=== PATIENT | male | born 1960 | race Caucasian/White ===

== ENCOUNTER 2021-11-09 11:34 | Inpatient (IN) | payer BC ==
[~2021-11-09 11:34] MED LIST: Iopamidol-370 76% 500 ML 1 ML ONE
[2021-11-09 12:05] LABS: #Eosinphils 0.3 thou/uL (0.0-0.7); #Lymphocytes 1.3 thou/uL (1.20-3.40); #Monocytes 1.4 thou/uL (0.11-0.59); #Neutrophils 11.2 thou/uL (1.40-6.50); %Basophils 0.1 % (0.0-1.0); %Eosinophils 2.1 % (0.0-10.0); %Lymphocytes 9.2 % (21.0-51.0); %Monocytes 9.9 % (0.0-10.0); %Neutrophils 78.7 % (42.0-75.0); Hemoglobin 13.9 g/dL (14.0-18.0); Mean Corpuscular HGB CONC 32.5 g/dL (32.0-36.0); Mean Corpuscular Hemoglobin 29.9 pg (27.0-31.0); Mean Platelet Volume 6.3 fL (7.4-10.4); Platelet Count 439 thou/uL (130-400); RBC Distribution Width 11.1 % (11.5-14.5); Red Blood Cell (RBC) Count 4.64 mill/uL (4.70-6.10); White Blood Cell (WBC) Count 14.2 thou/uL (4.8-10.8)
[2021-11-09 12:23] LABS: ALT (SGPT) 74 U/L (8-55); AST (SGOT) 76 U/L (5-34); Albumin 3.6 g/dL (3.5-5.0); Alkaline Phosphatase 106 U/L (40-110); Anion Gap 13 mmol/L (10-20); BUN (Urea Nitrogen) 13 mg/dL (8.4-25.7); Bilirubin, Total 1.5 mg/dL (0.2-1.2); Calc. Creatinine Clearance 0 mL/min (70-130); Calcium 9.5 mg/dL (7.8-10.44); Carbon Dioxide 29 mmol/L (22-29); Chloride 93 mmol/L (98-107); Globulin 3.5 g/dL (2.4-3.5); Glucose 113 mg/dL (70-105); Potassium 5.4 mmol/L (3.5-5.1); Protein, Total 7.1 g/dL (6.0-8.3); Sodium 130 mmol/L (136-145)
[2021-11-09] MEDS ORDERED: Cefepime 2 GM VIAL ONE (14:27)
[2021-11-09] MEDS ORDERED: VANCOMYCIN 2 GRAM/500 ML BAG 2 GM in Premix Bag 1 BAG IVPB SCH (15:15)
[2021-11-09 16:00] LABS: SARS-CoV-2 NAA Rapid Test Not Detected (NotDetected)
[2021-11-09] MEDS ORDERED: Senokot S 8.6-50 MG TAB PO PRN (16:42)
[2021-11-09] MEDS ORDERED: Ondansetron PF 4 MG/2 ML Vial IVP PRN ×2 (16:42→16:45)
[2021-11-09] MEDS ORDERED: Ondansetron ODT 4 MG TAB PO PRN (16:45)
[2021-11-09] MEDS ORDERED: Acetaminophen 325 MG TAB PO PRN (16:45)
[2021-11-09 17:24] VITALS: BMI 32.3
[2021-11-09] MEDS: Lactated Ringer's 1,000 ML IV SCH (17:47)
[2021-11-09] MEDS ORDERED: Albuterol 200 PUFF (6.7GM INHALER) INH PRN (17:54)
[2021-11-09] MEDS ORDERED: PROMETHAZINE PO PRN (18:17)
[2021-11-09] MEDS ORDERED: DEXTROMETHORPHAN PO PRN (18:17)
[2021-11-09] MEDS: Acetaminophen 325 MG TAB PO SCH (20:22)
[2021-11-09] MEDS: Benzonatate 100 MG CAP PO SCH (20:23)
[2021-11-09] MEDS: Acetaminophen/Codeine 30-300mg Tablet PO PRN (21:14)
[2021-11-09] MEDS: metroNIDAZOLE 500 MG in Premix Bag 1 BAG IVPB SCH (21:14)
[2021-11-10 00:31] LABS: Anion Gap 11 mmol/L (10-20); BUN (Urea Nitrogen) 11 mg/dL (8.4-25.7); Calc. Creatinine Clearance 137 mL/min (70-130); Calcium 8.9 mg/dL (7.8-10.44); Carbon Dioxide 28 mmol/L (22-29); Chloride 97 mmol/L (98-107); Glucose 107 mg/dL (70-105); Potassium 4.2 mmol/L (3.5-5.1); Sodium 132 mmol/L (136-145)
[2021-11-10] MEDS ORDERED: Ibuprofen 800 MG TAB PO PRN (01:31)
[2021-11-10] MEDS: Lactated Ringer's 1,000 ML IV SCH ×3 (03:17→20:08)
[2021-11-10] MEDS: VANCOMYCIN 1.75 GM/500 ML BAG 1.75 GM in Premix Bag 1 BAG IVPB SCH ×2 (03:44→16:45)
[2021-11-10] MEDS: metroNIDAZOLE 500 MG in Premix Bag 1 BAG IVPB SCH ×3 (03:45→21:39)
[2021-11-10] MEDS: Acetaminophen 325 MG TAB PO SCH ×3 (03:59→20:17)
[2021-11-10] MEDS: Acetaminophen/Codeine 30-300mg Tablet PO PRN ×2 (05:27→23:36)
[2021-11-10 07:00] LABS: #Eosinphils 0.4 thou/uL (0.0-0.7); #Neutrophils 7.8 thou/uL (1.40-6.50); %Basophils 0.3 % (0.0-1.0); %Lymphocytes 9.4 % (21.0-51.0); %Monocytes 9.7 % (0.0-10.0); %Neutrophils 76.7 % (42.0-75.0); Hemoglobin 12.8 g/dL (14.0-18.0); Mean Corpuscular HGB CONC 33.4 g/dL (32.0-36.0); Mean Corpuscular Volume 92.8 fL (78.0-98.0); Mean Platelet Volume 6.9 fL (7.4-10.4); Platelet Count 332 thou/uL (130-400); RBC Distribution Width 11.1 % (11.5-14.5); Red Blood Cell (RBC) Count 4.13 mill/uL (4.70-6.10); White Blood Cell (WBC) Count 10.2 thou/uL (4.8-10.8)
[2021-11-10 07:23] LABS: Anion Gap 11 mmol/L (10-20); BUN (Urea Nitrogen) 10 mg/dL (8.4-25.7); Calc. Creatinine Clearance 152 mL/min (70-130); Calcium 9.1 mg/dL (7.8-10.44); Carbon Dioxide 28 mmol/L (22-29); Cardiac Risk 7.3 (Less than 4.5); Chloride 100 mmol/L (98-107); Cholesterol 139 mg/dl (< 200 Desired); Glucose 117 mg/dL (70-105); HDL Cholesterol 19 mg/dL (>60 Neg Risk); LDL Cholesterol, Calculated 101 mg/dL; Potassium 3.9 mmol/L (3.5-5.1); Sodium 135 mmol/L (136-145); Triglycerides 96 mg/dL (Less than 150)
[2021-11-10] MEDS ORDERED: Enoxaparin Sodium 40 MG/0.4 ML SYRINGE SC SCH (09:00)
[2021-11-10 09:12] LABS: INR-International Normal Ratio 1.2; Prothrombin Time 14.8 sec (12.0-14.7)
[2021-11-10 09:13] LABS: PTT 39.9 sec (22.9-36.1)
[2021-11-10] MEDS: Benzonatate 100 MG CAP PO SCH ×3 (09:29→20:07)
[2021-11-10] MEDS: Ketorolac Tromethamine 30 MG/ML VIAL IVP PRN (16:30)
[2021-11-10] MEDS: cefTRIAXone\\ROCEPHIN 1 GM in Sodium Chloride 0.9% 100 ML IVPB SCH (20:08)
[2021-11-11 03:48] LABS: Vancomycin, Trough 14.9 ug/mL
[2021-11-11] MEDS: VANCOMYCIN 1.75 GM/500 ML BAG 1.75 GM in Premix Bag 1 BAG IVPB SCH (04:37)
[2021-11-11] MEDS: Ketorolac Tromethamine 30 MG/ML VIAL IVP PRN (04:41)
[2021-11-11] MEDS: Acetaminophen 500 MG TAB PO SCH ×3 (05:07→20:43)
[2021-11-11] MEDS: metroNIDAZOLE 500 MG in Premix Bag 1 BAG IVPB SCH ×3 (08:14→20:43)
[2021-11-11] MEDS: Lactated Ringer's 1,000 ML IV SCH ×2 (08:15→11:53)
[2021-11-11] MEDS: Benzonatate 100 MG CAP PO SCH ×3 (08:15→19:53)
[2021-11-11 08:54] LABS: #Eosinphils 0.3 thou/uL (0.0-0.7); #Monocytes 0.9 thou/uL (0.11-0.59); #Neutrophils 7.9 thou/uL (1.40-6.50); %Basophils 0.1 % (0.0-1.0); %Eosinophils 2.7 % (0.0-10.0); %Lymphocytes 10.2 % (21.0-51.0); %Monocytes 9.2 % (0.0-10.0); %Neutrophils 77.9 % (42.0-75.0); Hemoglobin 12.3 g/dL (14.0-18.0); Mean Corpuscular HGB CONC 33.4 g/dL (32.0-36.0); Mean Platelet Volume 6.6 fL (7.4-10.4); Platelet Count 332 thou/uL (130-400); Red Blood Cell (RBC) Count 3.95 mill/uL (4.70-6.10); White Blood Cell (WBC) Count 10.2 thou/uL (4.8-10.8)
[2021-11-11 09:15] LABS: ALT (SGPT) 49 U/L (8-55); AST (SGOT) 32 U/L (5-34); Albumin 2.9 g/dL (3.5-5.0); Alkaline Phosphatase 81 U/L (40-110); Anion Gap 12 mmol/L (10-20); BUN (Urea Nitrogen) 12 mg/dL (8.4-25.7); Bilirubin, Total 0.7 mg/dL (0.2-1.2); Calc. Creatinine Clearance 152 mL/min (70-130); Calcium 8.6 mg/dL (7.8-10.44); Carbon Dioxide 24 mmol/L (22-29); Chloride 104 mmol/L (98-107); Globulin 3.4 g/dL (2.4-3.5); Glucose 101 mg/dL (70-105); Potassium 4.1 mmol/L (3.5-5.1); Protein, Total 6.3 g/dL (6.0-8.3); Sodium 136 mmol/L (136-145)
[2021-11-11] MEDS ORDERED: Dexamethasone 4 mg/ml Vial ONE (10:34)
[2021-11-11] MEDS ORDERED: Bupivacaine PF 0.5% 30 ML VIAL ONE (10:34)
[2021-11-11] MEDS ORDERED: EPINEPHrine 1 MG/ML AMP ONE (10:34)
[2021-11-11] MEDS ORDERED: fentaNYL Citrate/PF 100 MCG/2 ML SYRINGE ONE (10:44)
[2021-11-11] MEDS ORDERED: Ondansetron PF 4 MG/2 ML Vial ONE (11:34)
[2021-11-11] MEDS ORDERED: Ketorolac Tromethamine 30 MG/ML VIAL ONE (11:34)
[2021-11-11] MEDS ORDERED: Rocuronium Bromide 10 MG/ML (10ML VIAL) ONE (11:34)
[2021-11-11] MEDS ORDERED: Lidocaine 1% PF 5 ML VIAL ONE (11:34)
[2021-11-11] MEDS ORDERED: Dexamethasone 20 MG/5 ML VIAL ONE (11:34)
[2021-11-11] MEDS ORDERED: PROPOFOL 200 MG/20 ML VIAL ONE (11:34)
[2021-11-11] MEDS ORDERED: Glycopyrrolate 0.2 MG/ML 5 ML SYRINGE ONE (11:34)
[2021-11-11 12:48] LABS: Glucose 66 mg/dL (70-105); Protein, Total 4.9 g/dL (6.0-8.3)
[2021-11-11] MEDS ORDERED: Ondansetron HCl/PF 4 MG/2 ML Vial IVP PRN (13:03)
[2021-11-11] MEDS ORDERED: Promethazine HCl 25 MG/ML VIAL IM PRN ×2 (13:03→13:04)
[2021-11-11] MEDS ORDERED: Promethazine HCl 25 MG/ML VIAL IVPB PRN (13:03)
[2021-11-11] MEDS ORDERED: diphenhydrAMINE 25 MG CAP PO PRN (13:04)
[2021-11-11] MEDS ORDERED: Fentanyl 100 MCG/2 ML VIAL ONE (13:04)
[2021-11-11] MEDS ORDERED: Naloxone HCl 0.4 mg/ml Vial IV PRN (13:04)
[2021-11-11] MEDS ORDERED: Ondansetron PF 4 MG/2 ML Vial IVP PRN (13:04)
[2021-11-11] MEDS ORDERED: diphenhydrAMINE 50 MG/ML VIAL IVP PRN (13:04)
[2021-11-11] MEDS ORDERED: Zolpidem Tartrate 5 MG TAB PO PRN (13:04)
[2021-11-11] MEDS ORDERED: diphenhydrAMINE 50 MG/ML VIAL IM PRN (13:04)
[2021-11-11] MEDS ORDERED: fentaNYL Citrate/PF 2,000 MCG in Sodium Chloride 0.9% 60 ML IV PRN (13:04)
[2021-11-11] MEDS ORDERED: Phenylephrine 40 MG in Sodium Chloride 0.9% 250 ML 250 ML IVPB PRN (13:12)
[2021-11-11] MEDS ORDERED: hydrALAZINE 20 MG/ML VIAL SLOW IVP PRN (13:12)
[2021-11-11] MEDS ORDERED: Communication Order-Pharmacy FS SCH (13:15)
[2021-11-11] MEDS ORDERED: Lactated Ringer's 1,000 ML IV SCH (16:18)
[2021-11-11] MEDS: cefTRIAXone\\ROCEPHIN 1 GM in Sodium Chloride 0.9% 100 ML IVPB SCH (19:53)
[2021-11-12 03:57] LABS: #Lymphocytes 0.4 thou/uL (1.20-3.40); %Eosinophils 0.3 % (0.0-10.0); %Lymphocytes 2.5 % (21.0-51.0); %Monocytes 5.8 % (0.0-10.0); %Neutrophils 91.5 % (42.0-75.0); Hemoglobin 11.8 g/dL (14.0-18.0); Mean Corpuscular HGB CONC 32.5 g/dL (32.0-36.0); Mean Corpuscular Hemoglobin 30.6 pg (27.0-31.0); Mean Corpuscular Volume 94.2 fL (78.0-98.0); Mean Platelet Volume 6.9 fL (7.4-10.4); Platelet Count 348 thou/uL (130-400); RBC Distribution Width 11.1 % (11.5-14.5); Red Blood Cell (RBC) Count 3.85 mill/uL (4.70-6.10); White Blood Cell (WBC) Count 17.5 thou/uL (4.8-10.8)
[2021-11-12 04:25] LABS: Anion Gap 12 mmol/L (10-20); BUN (Urea Nitrogen) 10 mg/dL (8.4-25.7); Calc. Creatinine Clearance 161 mL/min (70-130); Calcium 8.6 mg/dL (7.8-10.44); Carbon Dioxide 24 mmol/L (22-29); Chloride 101 mmol/L (98-107); Glucose 166 mg/dL (70-105); Potassium 4.2 mmol/L (3.5-5.1); Sodium 133 mmol/L (136-145)
[2021-11-12] MEDS: Acetaminophen 500 MG TAB PO SCH ×3 (05:04→21:21)
[2021-11-12] MEDS: metroNIDAZOLE 500 MG in Premix Bag 1 BAG IVPB SCH ×3 (05:05→21:21)
[2021-11-12] MEDS: Tamsulosin HCl 0.4 MG CAP PO SCH (07:21)
[2021-11-12] MEDS: Benzonatate 100 MG CAP PO SCH ×3 (07:21→20:13)
[2021-11-12] MEDS ORDERED: chlorproMAZINE HCl 25 MG TAB PO PRN (08:36)
[2021-11-12] MEDS ORDERED: diphenhydrAMINE 25 MG CAP PO PRN (08:41)
[2021-11-12] MEDS ORDERED: Melatonin 3 MG TAB PO PRN (08:41)
[2021-11-12] MEDS ORDERED: Enoxaparin Sodium 40 MG/0.4 ML SYRINGE SC SCH (10:00)
[2021-11-12] MEDS: cefTRIAXone\\ROCEPHIN 1 GM in Sodium Chloride 0.9% 100 ML IVPB SCH (20:13)
[2021-11-13] MEDS: Acetaminophen 500 MG TAB PO SCH ×3 (05:48→21:57)
[2021-11-13] MEDS: metroNIDAZOLE 500 MG in Premix Bag 1 BAG IVPB SCH ×3 (05:48→21:57)
[2021-11-13 06:03] LABS: #Eosinphils 0.1 thou/uL (0.0-0.7); #Lymphocytes 1.4 thou/uL (1.20-3.40); #Monocytes 0.9 thou/uL (0.11-0.59); #Neutrophils 11.8 thou/uL (1.40-6.50); %Basophils 0.1 % (0.0-1.0); %Eosinophils 0.4 % (0.0-10.0); %Lymphocytes 9.9 % (21.0-51.0); %Monocytes 6.4 % (0.0-10.0); %Neutrophils 83.1 % (42.0-75.0); Hemoglobin 11.9 g/dL (14.0-18.0); Mean Corpuscular HGB CONC 32.4 g/dL (32.0-36.0); Mean Corpuscular Hemoglobin 30.6 pg (27.0-31.0); Mean Corpuscular Volume 94.6 fL (78.0-98.0); Platelet Count 392 thou/uL (130-400); RBC Distribution Width 11.3 % (11.5-14.5); Red Blood Cell (RBC) Count 3.89 mill/uL (4.70-6.10); White Blood Cell (WBC) Count 14.1 thou/uL (4.8-10.8)
[2021-11-13 06:41] LABS: ALT (SGPT) 39 U/L (8-55); AST (SGOT) 35 U/L (5-34); Albumin 2.7 g/dL (3.5-5.0); Alkaline Phosphatase 71 U/L (40-110); Anion Gap 11 mmol/L (10-20); BUN (Urea Nitrogen) 10 mg/dL (8.4-25.7); Bilirubin, Total 0.4 mg/dL (0.2-1.2); Calc. Creatinine Clearance 170 mL/min (70-130); Calcium 8.2 mg/dL (7.8-10.44); Carbon Dioxide 27 mmol/L (22-29); Chloride 100 mmol/L (98-107); Globulin 3.3 g/dL (2.4-3.5); Glucose 102 mg/dL (70-105); Potassium 3.7 mmol/L (3.5-5.1); Sodium 134 mmol/L (136-145)
[2021-11-13] MEDS: Benzonatate 100 MG CAP PO SCH ×3 (08:31→21:15)
[2021-11-13] MEDS: Tamsulosin HCl 0.4 MG CAP PO SCH (08:31)
[2021-11-13] MEDS: Enoxaparin Sodium 40 MG/0.4 ML SYRINGE SC SCH (08:31)
[2021-11-13] MEDS ORDERED: Enoxaparin Sodium 60 MG/0.6 ML SYRINGE SC SCH (10:00)
[2021-11-13] MEDS: cefTRIAXone\\ROCEPHIN 1 GM in Sodium Chloride 0.9% 100 ML IVPB SCH (21:15)
[2021-11-14] MEDS: metroNIDAZOLE 500 MG in Premix Bag 1 BAG IVPB SCH (05:53)
[2021-11-14] MEDS: Acetaminophen 500 MG TAB PO SCH ×3 (05:53→21:34)
[2021-11-14 06:06] LABS: #Eosinphils 0.2 thou/uL (0.0-0.7); #Lymphocytes 1.2 thou/uL (1.20-3.40); #Monocytes 0.8 thou/uL (0.11-0.59); #Neutrophils 8.3 thou/uL (1.40-6.50); %Basophils 0.4 % (0.0-1.0); %Lymphocytes 11.3 % (21.0-51.0); %Monocytes 7.8 % (0.0-10.0); %Neutrophils 78.5 % (42.0-75.0); Hemoglobin 12.1 g/dL (14.0-18.0); Mean Corpuscular HGB CONC 32.8 g/dL (32.0-36.0); Mean Corpuscular Hemoglobin 30.8 pg (27.0-31.0); Mean Corpuscular Volume 93.9 fL (78.0-98.0); Platelet Count 439 thou/uL (130-400); RBC Distribution Width 11.3 % (11.5-14.5); Red Blood Cell (RBC) Count 3.92 mill/uL (4.70-6.10); White Blood Cell (WBC) Count 10.6 thou/uL (4.8-10.8)
[2021-11-14 06:33] LABS: ALT (SGPT) 37 U/L (8-55); AST (SGOT) 32 U/L (5-34); Albumin 2.8 g/dL (3.5-5.0); Alkaline Phosphatase 67 U/L (40-110); Anion Gap 10 mmol/L (10-20); BUN (Urea Nitrogen) 8 mg/dL (8.4-25.7); Bilirubin, Total 0.5 mg/dL (0.2-1.2); Calc. Creatinine Clearance 170 mL/min (70-130); Calcium 8.7 mg/dL (7.8-10.44); Carbon Dioxide 28 mmol/L (22-29); Chloride 99 mmol/L (98-107); Globulin 3.3 g/dL (2.4-3.5); Glucose 99 mg/dL (70-105); Protein, Total 6.1 g/dL (6.0-8.3); Sodium 133 mmol/L (136-145)
[2021-11-14] MEDS ORDERED: Simethicone Chewable 80 MG TAB PO PRN (08:05)
[2021-11-14] MEDS: Benzonatate 100 MG CAP PO SCH ×3 (08:40→20:08)
[2021-11-14] MEDS: Tamsulosin HCl 0.4 MG CAP PO SCH (08:40)
[2021-11-14] MEDS: Enoxaparin Sodium 40 MG/0.4 ML SYRINGE SC SCH (08:41)
[2021-11-14] MEDS: Polyethylene Glycol 3350 17 GM Packet PO SCH (08:46)
[2021-11-14] MEDS ORDERED: HYDROcodone/Acetaminophen 5/325 mg Tablet PO PRN ×2 (09:15)
[2021-11-14] MEDS ORDERED: HYDROcodone/Acetaminophen 7.5/325 mg Tablet PO PRN (09:19)
[2021-11-14] MEDS: HYDROcodone/Acetaminophen 7.5/325 mg Tablet PO PRN ×3 (10:51→20:08)
[2021-11-14] MEDS: metroNIDAZOLE 500 MG TAB PO SCH ×2 (14:53→20:08)
[2021-11-15] MEDS: Acetaminophen 500 MG TAB PO SCH ×2 (05:33→14:34)
[2021-11-15] MEDS: HYDROcodone/Acetaminophen 7.5/325 mg Tablet PO PRN ×3 (05:34→14:33)
[2021-11-15] MEDS: Polyethylene Glycol 3350 17 GM Packet PO SCH (08:49)
[2021-11-15] MEDS: Benzonatate 100 MG CAP PO SCH ×2 (08:49→14:32)
[2021-11-15] MEDS: Enoxaparin Sodium 40 MG/0.4 ML SYRINGE SC SCH (08:49)
[2021-11-15] MEDS: metroNIDAZOLE 500 MG TAB PO SCH ×2 (08:49→14:32)
[2021-11-15] MEDS: Tamsulosin HCl 0.4 MG CAP PO SCH (08:49)
[2021-11-15 15:03] VITALS: BP 138/81; TEMP 98.1
[2021-11-18 14:37] LABS: Fungus Stain Final report (.)
== END 2021-11-15 15:03 | disposition home or self-care (01) | DRG 164 ==
LOC: ERS 11:34 → T4-A 15:32 → OBSVTOIN 11-11 10:04 → CCU 11-11 13:00 → SURG A 11-12 10:49
PROVIDERS: ADMIT Student in an Organized Health Care Education/Training Program; ATTEND Student in an Organized Health Care Education/Training Program
PROC: 0T9B70Z Drainage of Bladder with Drainage Device, Via Natural or Artificial Opening (ICD-10-PCS; 2021-11-11)
PROC: 0BNL0ZZ Release Left Lung, Open Approach (ICD-10-PCS; 2021-11-11)
PROC: 0W9B3ZZ Drainage of Left Pleural Cavity, Percutaneous Approach (ICD-10-PCS; principal; 2021-11-12)
DX: J85.1 Abscess of lung with pneumonia (principal); J90 Pleural effusion, not elsewhere classified; E87.1 Hypo-osmolality and hyponatremia; M10.9 Gout, unspecified; F17.220 Nicotine dependence, chewing tobacco, uncomplicated; I77.819 Aortic ectasia, unspecified site; R33.9 Retention of urine, unspecified; K59.00 Constipation, unspecified; Z20.822 Contact with and (suspected) exposure to COVID-19; Z79.51 Long term (current) use of inhaled steroids; Z79.899 Other long term (current) drug therapy; Z90.49 Acquired absence of other specified parts of digestive tract
CPT/HCPCS: 36415; 71045; 71275; 76705; 80048; 80053; 80061; 80202; 83605; 83615; 83735; 83880; 83930; 83935; 83986; 84145; 84155; 84300; 84443; 84484; 85025; 85610; 85730; 87040; 87070; 87076; 87102; 87205; 87206; 88112; 88305; 88307; 88312; 93005; 94640; 94760; 96365; 96375; 96376; G0378; J0171; J0692; J0696; J1100; J1650; J1885; J2405; J2704; J3010; J3370; J3490; J7120; J7620; Q9967; S0020; U0002

== ENCOUNTER 2021-12-01 13:35 | Outpatient (CLI) | payer BC | END 2021-12-01 13:36 | disposition home or self-care (01) | LOC: BICRAD 13:35 | PROVIDERS: ATTEND Thoracic Surgery (Cardiothoracic Vascular Surgery) | DX: J86.9 Pyothorax without fistula (principal); Z46.82 Encounter for fitting and adjustment of non-vascular catheter | CPT/HCPCS: 71046 ==